=== PATIENT | female | born 1990 | race American Indian/Alaskan Native ===

== ENCOUNTER 2018-05-11 19:15 | Inpatient (IN) | payer MEDICAID ==
[2018-05-11] MEDS ORDERED: COLACE PO PRN (19:36)
[2018-05-11] MEDS ORDERED: TYLENOL PO PRN (19:36)
[2018-05-11] MEDS ORDERED: MAGNESIUM SULFATE 4GM/100ML 4 GM/100 ML BAG IV ONE (19:36)
--- NOTE | 2018-05-11 19:41 | History and Physical Report ---
History of Present Illness Date of examination: 05/11/18 Date of admission: 05/11/2018 Chief complaint: AEDF History of present illness: 28y/o @ 31+5 weeks with Di/Di twin gestation. The patient is being admitted by request from [facility] for findings of intermittent AEDF. She denies leakage of fluid or uterine contractions. Past History Past Medical History: no pertinent history Past Surgical History: section Social history: - Obstetrical History Expected Date of Delivery: 07/09/18 Actual Gestation: 31 Week(s) 5 Day(s) : 2 Para: 1 Hx # Term Pregnancies: 1 Number of Pregnancies: 0 Spontaneous Abortions: 0 Induced : 0 Number of Living Children: 1 Medications and Allergies Allergies Allergy/AdvReac Type Severity Reaction Status Date / Time shellfish derived Allergy Severe Anaphylaxis Verified 05/11/18 22:10 SEAFOOD Allergy Severe Anaphylaxis Uncoded 05/11/18 22:10 Home Medications Medication Instructions Recorded Confirmed Last Taken Type Vit,Calc76/Iron/Folic 1 tab PO DAILY 04/19/18 05/11/18 05/10/18 History [Pnv 29-1 Tablet] Review of Systems All systems: negative Genitourinary: no leakage of fluid, no contractions - Physical Exam Breasts: Positive: deferred Cardiovascular: Regular rate Lungs: Positive: Clear to auscultation Results Result Diagrams: 05/11/18 22:50 All other labs normal. Assessment and Plan - Patient Problems (1) Twin Current Visit: Yes Status: Acute Plan to address problem: admit for magnesium therapy and steroids (2) Intrauterine growth restriction (IUGR) affecting care of mother Current Visit: Yes Status: Acute
[2018-05-11] MEDS: LACTATED RINGERS 1,000 ML IV SCH (22:56)
[2018-05-11] MEDS: CELESTONE SOLUSPAN IM SCH (22:57)
[2018-05-11] MEDS: MAGNESIUM SULFATE 40GM/1000ML 40 GM/1,000 ML BAG IV SCH (23:21)
[2018-05-11] MEDS: PRENATAL VITAMIN PO SCH (23:24)
[2018-05-11 23:48] LABS: Basophils % (Auto) 0.2 % (0.0-1.8); Eosinophils # (Auto) 0.1 K/mm3 (0.0-0.4); Eosinophils % (Auto) 0.7 % (0.0-4.3); Hematocrit 37.1 % (30.3-42.9); Hemoglobin 12.3 gm/dl (10.1-14.3); Lymphocytes # (Auto) 2.1 K/mm3 (1.2-5.4); Lymphocytes % (Auto) 20.6 % (13.4-35.0); Mean Corpuscular HGB Conc 33 % (30-34); Mean Corpuscular Hemoglobin 29 pg (28-32); Mean Corpuscular Volume 88 fl (79-97); Monocytes # (Auto) 1.1 K/mm3 (0.0-0.8); Monocytes % (Auto) 10.6 % (0.0-7.3); Platelet Count 204 K/mm3 (140-440); Red Blood Count 4.24 M/mm3 (3.65-5.03); Red Cell Distribution Width 12.9 % (13.2-15.2)
--- NOTE | 2018-05-12 08:00 | Progress Note ---
Assessment and Plan - Patient Problems (1) Twin Current Visit: Yes Status: Acute Plan to address problem: continuous monitoring schedule BPP on Monday complete steroid series and magnesium (2) Intrauterine growth restriction (IUGR) affecting care of mother Current Visit: Yes Status: Acute Subjective - Subjective Date of service: 05/12/18 Interval history: 28y/o @ 31+5 weeks with Di/Di twin gestation. The patient is without any significant complaints. Will continue monitoring. Scheduled to receive 2nd dose of steroids tonight. Patient reports: no new complaints Objective - Vital Signs Vital Signs: Vital Signs - 12hr 05/11/18 05/11/18 05/11/18 22:19 22:21 22:55 Temperature 96.4 F L Pulse Rate 93 H 86 Respiratory 20 Rate Blood Pressure 106/59 105/54 O2 Sat by Pulse Oximetry 05/11/18 05/11/18 05/11/18 22:56 23:01 23:06 Temperature Pulse Rate 77 90 85 Respiratory Rate Blood Pressure 106/52 110/60 O2 Sat by Pulse 99 100 98 Oximetry 05/11/18 05/11/18 05/11/18 23:11 23:16 23:18 Temperature Pulse Rate 87 80 81 Respiratory Rate Blood Pressure 107/55 109/54 O2 Sat by Pulse 97 97 92 Oximetry 05/11/18 05/11/18 05/11/18 23:21 23:26 23:31 Temperature Pulse Rate 81 85 80 Respiratory Rate Blood Pressure 109/57 O2 Sat by Pulse 98 96 98 Oximetry 05/11/18 05/11/18 05/11/18 23:36 23:41 23:46 Temperature Pulse Rate 77 84 95 H Respiratory Rate Blood Pressure O2 Sat by Pulse 97 99 98 Oximetry 05/11/18 05/11/18 05/12/18 23:51 23:56 00:01 Temperature Pulse Rate 89 88 88 Respiratory Rate Blood Pressure O2 Sat by Pulse 98 97 97 Oximetry 05/12/18 05/12/18 05/12/18 00:02 00:06 00:11 Temperature Pulse Rate 51 L 85 86 Respiratory Rate Blood Pressure O2 Sat by Pulse 87 98 97 Oximetry 05/12/18 05/12/18 05/12/18 00:16 00:21 00:22 Temperature Pulse Rate 83 83 84 Respiratory Rate Blood Pressure 96/50 O2 Sat by Pulse 99 96 87 Oximetry 05/12/18 05/12/18 05/12/18 00:25 00:26 00:31 Temperature Pulse Rate 87 86 Respiratory 20 Rate Blood Pressure O2 Sat by Pulse 97 97 Oximetry 05/12/18 05/12/18 05/12/18 00:36 00:39 00:41 Temperature Pulse Rate 82 81 Respiratory Rate Blood Pressure O2 Sat by Pulse 97 82 L 98 Oximetry 05/12/18 05/12/18 05/12/18 00:46 00:51 00:56 Temperature Pulse Rate 81 85 86 Respiratory Rate Blood Pressure O2 Sat by Pulse 96 98 98 Oximetry 05/12/18 05/12/18 05/12/18 01:01 01:06 01:11 Temperature Pulse Rate 80 80 77 Respiratory Rate Blood Pressure O2 Sat by Pulse 96 96 95 Oximetry 05/12/18 05/12/18 05/12/18 01:16 01:21 01:22 Temperature Pulse Rate 81 80 79 Respiratory Rate Blood Pressure 106/58 O2 Sat by Pulse 98 98 Oximetry 05/12/18 05/12/18 05/12/18 01:26 01:31 01:36 Temperature Pulse Rate 79 84 84 Respiratory Rate Blood Pressure O2 Sat by Pulse 97 96 96 Oximetry 05/12/18 05/12/18 05/12/18 01:41 01:46 01:51 Temperature Pulse Rate 82 83 76 Respiratory Rate Blood Pressure O2 Sat by Pulse 97 98 98 Oximetry 05/12/18 05/12/18 05/12/18 01:56 02:01 02:06 Temperature 96.1 F L Pulse Rate 84 74 79 Respiratory 18 Rate Blood Pressure O2 Sat by Pulse 98 99 97 Oximetry 05/12/18 05/12/18 05/12/18 02:11 02:22 02:31 Temperature 98.0 F Pulse Rate 83 88 Respiratory 20 Rate Blood Pressure 146/84 O2 Sat by Pulse 96 Oximetry 05/12/18 05/12/18 05/12/18 02:40 02:42 02:45 Temperature Pulse Rate 83 85 80 Respiratory Rate Blood Pressure 122/64 O2 Sat by Pulse 99 99 Oximetry 05/12/18 05/12/18 05/12/18 02:50 02:55 03:00 Temperature Pulse Rate 83 85 82 Respiratory Rate Blood Pressure O2 Sat by Pulse 98 98 100 Oximetry 05/12/18 05/12/18 05/12/18 03:05 03:10 03:15 Temperature Pulse Rate 77 80 80 Respiratory Rate Blood Pressure O2 Sat by Pulse 99 98 99 Oximetry 05/12/18 05/12/18 05/12/18 03:20 03:22 03:25 Temperature Pulse Rate 82 82 77 Respiratory Rate Blood Pressure 112/59 O2 Sat by Pulse 98 99 Oximetry 05/12/18 05/12/18 05/12/18 03:30 03:35 03:40 Temperature Pulse Rate 63 79 73 Respiratory Rate Blood Pressure O2 Sat by Pulse 98 99 99 Oximetry 05/12/18 05/12/18 05/12/18 03:45 03:50 03:55 Temperature Pulse Rate 72 67 72 Respiratory Rate Blood Pressure O2 Sat by Pulse 99 98 98 Oximetry 05/12/18 05/12/18 05/12/18 04:00 04:05 04:10 Temperature Pulse Rate 66 69 76 Respiratory Rate Blood Pressure O2 Sat by Pulse 98 98 99 Oximetry 05/12/18 05/12/18 05/12/18 04:15 04:20 04:22 Temperature Pulse Rate 72 64 64 Respiratory 18 Rate Blood Pressure 120/54 O2 Sat by Pulse 99 98 Oximetry 05/12/18 05/12/18 05/12/18 04:25 04:30 04:35 Temperature Pulse Rate 76 71 72 Respiratory Rate Blood Pressure O2 Sat by Pulse 98 97 98 Oximetry 05/12/18 05/12/18 05/12/18 04:40 04:45 04:50 Temperature Pulse Rate 73 70 64 Respiratory Rate Blood Pressure O2 Sat by Pulse 97 97 96 Oximetry 05/12/18 05/12/18 05/12/18 04:55 05:00 05:05 Temperature Pulse Rate 72 62 67 Respiratory Rate Blood Pressure O2 Sat by Pulse 98 98 99 Oximetry 05/12/18 05/12/18 05/12/18 05:10 05:15 05:20 Temperature Pulse Rate 74 71 65 Respiratory Rate Blood Pressure O2 Sat by Pulse 98 99 99 Oximetry 05/12/18 05/12/18 05/12/18 05:23 05:24 05:25 Temperature Pulse Rate 71 74 71 Respiratory Rate Blood Pressure 126/63 O2 Sat by Pulse 93 97 Oximetry 05/12/18 05/12/18 05/12/18 05:30 05:35 05:40 Temperature Pulse Rate 75 66 71 Respiratory 18 Rate Blood Pressure O2 Sat by Pulse 98 99 98 Oximetry 05/12/18 05/12/18 05/12/18 05:45 05:50 05:55 Temperature Pulse Rate 69 68 70 Respiratory Rate Blood Pressure O2 Sat by Pulse 98 97 98 Oximetry 05/12/18 05/12/18 05/12/18 05:57 06:00 06:05 Temperature Pulse Rate 76 81 78 Respiratory Rate Blood Pressure O2 Sat by Pulse 93 97 97 Oximetry 05/12/18 05/12/18 05/12/18 06:10 06:15 06:20 Temperature Pulse Rate 79 82 78 Respiratory Rate Blood Pressure O2 Sat by Pulse 97 96 97 Oximetry 05/12/18 05/12/18 05/12/18 06:22 06:25 06:30 Temperature Pulse Rate 82 75 68 Respiratory Rate Blood Pressure 121/64 O2 Sat by Pulse 99 99 Oximetry 05/12/18 05/12/18 05/12/18 06:35 06:40 06:45 Temperature Pulse Rate 80 77 74 Respiratory Rate Blood Pressure O2 Sat by Pulse 98 98 99 Oximetry 05/12/18 05/12/18 05/12/18 06:50 06:53 06:55 Temperature Pulse Rate 90 84 Respiratory 22 Rate Blood Pressure O2 Sat by Pulse 99 99 Oximetry 05/12/18 05/12/18 05/12/18 07:00 07:05 07:10 Temperature Pulse Rate 83 77 75 Respiratory Rate Blood Pressure O2 Sat by Pulse 97 99 98 Oximetry 05/12/18 05/12/18 05/12/18 07:15 07:20 07:22 Temperature Pulse Rate 80 76 79 Respiratory Rate Blood Pressure 111/67 O2 Sat by Pulse 98 98 94 Oximetry 05/12/18 05/12/18 05/12/18 07:25 07:30 07:35 Temperature Pulse Rate 82 79 75 Respiratory Rate Blood Pressure O2 Sat by Pulse 98 100 100 Oximetry 05/12/18 05/12/18 05/12/18 07:40 07:45 07:50 Temperature Pulse Rate 80 83 84 Respiratory Rate Blood Pressure O2 Sat by Pulse 98 99 98 Oximetry 05/12/18 07:55 Temperature Pulse Rate 84 Respiratory Rate Blood Pressure O2 Sat by Pulse 98 Oximetry - Labs Labs: Abnormal Labs 05/11/18 22:50 RDW 12.9 L [place] % (Auto) 10.6 H [place] # 1.1 H Laboratory Results - last 24 hr 05/11/18 05/11/18 22:50 22:50 WBC 10.0 RBC 4.24 Hgb 12.3 Hct 37.1 MCV 88 MCH 29 MCHC 33 RDW 12.9 L Plt Count 204 Lymph % (Auto) 20.6 [place] % (Auto) 10.6 H Eos % (Auto) 0.7 Baso % (Auto) 0.2 Lymph # 2.1 [place] # 1.1 H Eos # 0.1 Baso # 0.0 Seg Neutrophils % 67.9 Seg Neutrophils # 6.8 Blood Type O NEGATIVE Antibody Screen Negative Screen Negative
[2018-05-12] MEDS: LACTATED RINGERS 1,000 ML IV SCH (11:56)
[2018-05-12] MEDS: MAGNESIUM SULFATE 40GM/1000ML 40 GM/1,000 ML BAG IV SCH (17:41)
[2018-05-12] MEDS ORDERED: CELESTONE SOLUSPAN IM SCH (22:30)
[2018-05-12] MEDS: CELESTONE SOLUSPAN IM SCH (22:42)
[2018-05-13] MEDS: PRENATAL VITAMIN PO SCH (11:30)
--- NOTE | 2018-05-13 16:42 | Progress Note ---
Assessment and Plan - Patient Problems (1) Twin Current Visit: Yes Status: Acute Plan to address problem: patient clinically stable reassuring monitoring (2) Intrauterine growth restriction (IUGR) affecting care of mother Current Visit: Yes Status: Acute Subjective - Subjective Date of service: 05/13/18 Interval history: 28y/o @ 31+6 weeks with Di/Di twin gestation. The patient is without any significant complaints. Scheduled for BPP tomorrow. Patient reports: no new complaints Objective - Vital Signs Vital Signs: Vital Signs - 12hr 05/13/18 05/13/18 05/13/18 04:46 04:51 04:56 Pulse Rate 80 74 85 Blood Pressure O2 Sat by Pulse 98 98 98 Oximetry 05/13/18 05/13/18 05/13/18 05:01 05:06 05:11 Pulse Rate 79 87 84 Blood Pressure O2 Sat by Pulse 98 98 97 Oximetry 05/13/18 05/13/18 05/13/18 05:16 05:21 05:26 Pulse Rate 90 86 87 Blood Pressure O2 Sat by Pulse 97 97 97 Oximetry 05/13/18 05/13/18 05/13/18 05:31 05:36 05:41 Pulse Rate 82 85 88 Blood Pressure O2 Sat by Pulse 97 98 98 Oximetry 05/13/18 05/13/18 05/13/18 05:46 05:51 11:32 Pulse Rate 80 90 83 Blood Pressure 119/59 O2 Sat by Pulse 96 98 Oximetry - Labs Labs: Abnormal Labs 05/11/18 22:50 RDW 12.9 L [place] % (Auto) 10.6 H [place] # 1.1 H Laboratory Results - last 24 hr 05/11/18 22:50 Blood Type O NEGATIVE Antibody Screen Negative Screen Negative
--- NOTE | 2018-05-14 10:36 | Ultrasound Report ---
ULTRASOUND BIOPHYSICAL PROFILE: History: Intrauterine growth restriction, well being Technique: Transabdominal ultrasound with Doppler interrogation. Baby A 0 - breathing movements 2 - movements 2 - posture and tone 2 - Qualitative amniotic fluid volume 6 - TOTAL SCORE OF POSSIBLE 8 Heart Rate (bpm) 154 ULTRASOUND BIOPHYSICAL PROFILE: History: Intrauterine growth restriction, well being Technique: Transabdominal ultrasound with Doppler interrogation. Baby B 2 - breathing movements 2 - movements 2 - posture and tone 2 - Qualitative amniotic fluid volume 8 - TOTAL SCORE OF POSSIBLE 8 Heart Rate (bpm) 154
--- NOTE | 2018-05-14 10:38 | Ultrasound Report ---
ULTRASOUND OB VELOCIMETRY UMBILICAL ARTERY HISTORY: well being, twin gestation. TECHNIQUE: Transabdominal ultrasound. Spectral Doppler interrogation was performed on 3 segments of the umbilical cord. FINDINGS: Baby A heart rate measures 152 beats per minute. The spectral waveforms are normal and persistent. No evidence for loss or reversal of end-diastolic flow. The resistive index average measures 0.72. The systolic/diastolic ratio average measures 3.2. IMPRESSION: Mildly elevated resistive indices.
--- NOTE | 2018-05-14 10:40 | Ultrasound Report ---
ULTRASOUND OB VELOCIMETRY UMBILICAL ARTERY HISTORY: well being, twin gestation. TECHNIQUE: Transabdominal ultrasound. Spectral Doppler interrogation was performed on 3 segments of the umbilical cord. FINDINGS: Baby B heart rate measures 152 beats per minute. The spectral waveforms are normal and persistent. No evidence for loss or reversal of end-diastolic flow. The resistive index average measures 0.72. The systolic/diastolic ratio average measures 3.4. IMPRESSION: Mildly elevated resistive indices.
[2018-05-14] MEDS: PRENATAL VITAMIN PO SCH (10:53)
[2018-05-14 12:16] VITALS: BP 100/55
== END 2018-05-14 12:21 | disposition home or self-care (01) | DRG 782 ==
LOC: TRG 19:15 → LD 23:59
PROVIDERS: ADMIT Obstetrics & Gynecology; ATTEND Obstetrics & Gynecology
PROC: 3E0334Z Introduction of Serum, Toxoid and Vaccine into Peripheral Vein, Percutaneous Approach (ICD-10-PCS; principal; 2018-05-12)
DX: O30.043 Twin pregnancy, dichorionic/diamniotic, third trimester (principal); O36.5930 Maternal care for other known or suspected poor fetal growth, third trimester, not applicable or unspecified; Z3A.31 31 weeks gestation of pregnancy; Z23 Encounter for immunization
CPT/HCPCS: 36415; 76819; 76820; 85025; 85461; 86850; 86900; 86901; G0378; J0702; J2790; J3475; J7120

== ENCOUNTER 2018-06-05 20:47 | Inpatient (IN) | payer MEDICAID ==
[2018-06-05] MEDS ORDERED: AMBIEN PO PRN (22:00)
[2018-06-05] MEDS: LACTATED RINGERS 1,000 ML IV SCH (22:00)
[2018-06-05] MEDS: DECADRON IV SCH (22:35)
[2018-06-05 23:07] LABS: Hematocrit 35.2 % (30.3-42.9); Hemoglobin 11.9 gm/dl (10.1-14.3); Mean Corpuscular HGB Conc 34 % (30-34); Mean Corpuscular Volume 86 fl (79-97); Platelet Count 197 K/mm3 (140-440); Red Cell Distribution Width 12.9 % (13.2-15.2)
[2018-06-06] MEDS ORDERED: DECADRON IV SCH
[2018-06-06] MEDS: LACTATED RINGERS 1,000 ML IV SCH ×2 (06:59→19:48)
--- NOTE | 2018-06-06 07:28 | History and Physical Report ---
History of Present Illness Date of examination: 06/06/18 Date of admission: 06/05/18 20:47 Chief complaint: IUGR and Abnormal dopplers History of present illness: Patient is a 28 year old with a twin IUP at 35.2 weeks. Patient was seen at [facility] on Monday where abnormal dopplers were found on exam for Baby B as well as IUGR for both twins. Per [facility] she was to be admitted, given steroids and delivered post steroid. Patient had been scheduled for repeat on 06/20/18. Past History Past Medical History: no pertinent history Past Surgical History: section Family/Genetic History: none Social history: single - Obstetrical History Expected Date of Delivery: 07/09/18 Actual Gestation: 35 Week(s) 3 Day(s) : 2 Para: 1 Medications and Allergies Allergies Allergy/AdvReac Type Severity Reaction Status Date / Time shellfish derived Allergy Severe Anaphylaxis Verified 05/11/18 22:10 SEAFOOD Allergy Severe Anaphylaxis Uncoded 05/11/18 22:10 Home Medications Medication Instructions Recorded Confirmed Last Taken Type Vit,Calc76/Iron/Folic 1 tab PO DAILY 04/19/18 05/11/18 05/10/18 History [Pnv 29-1 Tablet] Active Meds: Active Medications Acetaminophen (Tylenol) 650 mg PO Q4H PRN PRN Reason: Pain MILD(1-3)/Fever >100.5/MOSS Dexamethasone (Decadron) 6 mg IV Q12HR ERIN Stop: 06/07/18 10:01 Last Admin: 06/05/18 22:35 Dose: 6 mg Documented by: Docusate Sodium (Colace) 100 mg PO Q12H PRN PRN Reason: Constipation Lactated Ringer's (Lactated Ringers) 1,000 mls @ 125 mls/hr IV DIRECT ERIN Last Admin: 06/06/18 06:59 Dose: 125 mls/hr Documented by: Multivitamins/Iron/Calcium ( Vitamin) 1 each PO QDAY ERIN Ondansetron HCl (Zofran) 4 mg IV Q6H PRN PRN Reason: Nausea And Vomiting Zolpidem Tartrate (Ambien) 10 mg PO QHS PRN PRN Reason: Insomnia Review of Systems All systems: negative Constitutional: weight gain Eyes: deferred - Vital Signs Vital signs: Vital Signs Temp Pulse Resp BP 97.0 F L 75 18 139/73 06/05/18 22:00 06/05/18 22:00 06/05/18 22:00 06/05/18 22:00 Temp Pulse Resp BP Pulse Ox 97.8 F 60 20 114/56 06/06/18 05:22 06/06/18 07:10 06/06/18 05:22 06/06/18 07:10 - Physical Exam Breasts: Positive: deferred Cardiovascular: Regular rate, Normal S1, Normal S2 Lungs: Positive: Clear to auscultation, Normal air movement Abdomen: Positive: normal appearance, soft, normal bowel sounds Genitourinary (Female): Positive: normal external genitalia, normal perenium Vulva: both: normal Vagina: Positive: normal moisture Uterus: Positive: normal size, normal contour Extremities: Positive: normal Deep Tendon Reflex Grade: Normal +2 - Obstetrical FHR: auscultation normal Cervical Dilatation: 0 Results Result Diagrams: 06/06/18 09:39 Abnormal lab results 06/05/18 Range/Units 22:10 RDW 12.9 L (13.2-15.2) % All other labs normal. Assessment and Plan Twin IUP at 35 weeks here for steroids and delivery. Admit for same. Patient to be NPO after 10pm.
[2018-06-06] MEDS ORDERED: TYLENOL PO PRN (09:00)
[2018-06-06] MEDS ORDERED: MYLICON PO PRN (09:00)
[2018-06-06] MEDS ORDERED: COLACE PO PRN (09:00)
[2018-06-06] MEDS ORDERED: ZOFRAN IV PRN (09:00)
[2018-06-06 10:05] LABS: Basophils % (Auto) 0.1 % (0.0-1.8); Eosinophils % (Auto) 0.1 % (0.0-4.3); Hematocrit 35.6 % (30.3-42.9); Hemoglobin 12.1 gm/dl (10.1-14.3); Lymphocytes # (Auto) 0.9 K/mm3 (1.2-5.4); Lymphocytes % (Auto) 11.8 % (13.4-35.0); Mean Corpuscular HGB Conc 34 % (30-34); Mean Corpuscular Volume 86 fl (79-97); Monocytes # (Auto) 0.4 K/mm3 (0.0-0.8); Platelet Count 196 K/mm3 (140-440); Red Blood Count 4.15 M/mm3 (3.65-5.03)
[2018-06-06] MEDS: PRENATAL VITAMIN PO SCH (12:02)
[2018-06-06] MEDS: DECADRON IV SCH ×2 (12:02→22:55)
[2018-06-07] MEDS: PRENATAL VITAMIN PO SCH (11:00)
[2018-06-07] MEDS: DECADRON IV SCH (11:00)
--- NOTE | 2018-06-07 17:49 | Progress Note ---
Assessment and Plan HD 2 for steroid redose in preparation for rcs. Doing well. Plan for in am. Subjective - Subjective Date of service: 06/07/18 Interval history: Patient is a 28 year old with a twin IUP at 35.2 weeks. Patient was seen at [facility] on Monday where abnormal dopplers were found on exam for Baby B as well as IUGR for both twins. Per [facility] she was to be admitted, given steroids and delivered post steroid. Patient had been scheduled for repeat on 06/20/18. Patient reports: movement normal Objective - Vital Signs Vital Signs: Vital Signs - 12hr 06/07/18 06/07/18 06/07/18 06:05 06:13 07:22 Temperature Pulse Rate 63 63 63 Respiratory 18 Rate Blood Pressure 99/55 131/65 Blood Pressure 99/55 [Right] 06/07/18 06/07/18 06/07/18 11:51 12:00 15:02 Temperature 98.2 F Pulse Rate 68 68 Respiratory 16 Rate Blood Pressure 122/60 118/65 Blood Pressure [Right] - Exam Breasts: deferred Cardiovascular: Regular rate, Normal S1, Normal S2 Lungs: Clear to auscultation, Normal air movement Abdomen: Present: normal appearance, soft, normal bowel sounds Uterus: Present: normal - Labs Labs: Abnormal Labs 06/05/18 06/06/18 22:10 09:39 RDW 12.9 L 13.0 L Lymph % (Auto) 11.8 L Lymph # 0.9 L Seg Neutrophils % 83.0 H
[2018-06-08] MEDS ORDERED: BICITRA PO NR (05:23)
[2018-06-08] MEDS ORDERED: PEPCID IV NR (05:23)
[2018-06-08] MEDS ORDERED: REGLAN IV NR (05:23)
[2018-06-08] MEDS ORDERED: LACTATED RINGERS 1,000 ML IV SCH (06:00)
[2018-06-08] MEDS ORDERED: ANCEF/STERILE WATER 2 GM/20 ML 2 GM/20 ML SYRINGE IV NR (06:00)
[2018-06-08] MEDS ORDERED: PITOCin/NS 20 UNIT/1000ML DRIP 20 UNITS/1,000 ML BAG IV SCH ×2 (06:00→11:01)
[2018-06-08] MEDS ORDERED: PITOCin/NS 20 UNIT/1000ML DRIP 20,000 MILLIUNITS/1,000 ML BAG IV ONE (06:52)
[2018-06-08] MEDS ORDERED: ADRENALIN ONE (07:25)
--- NOTE | 2018-06-08 07:29 | Anesthesia Consultation ---
Anesthesia Consult and Med Hx Date of service: 06/08/18 - Airway Anesthetic Teeth Evaluation: Good ROM Head & Neck: Adequate Mental/Hyoid Distance: Inadequate Mallampati Class: Class III Intubation Access Assessment: Possibly Difficult - Pulmonary Exam CTA: Yes - Cardiac Exam Cardiac Exam: RRR - Pre-Operative Health Status ASA Pre-Surgery Classification: ASA3 Proposed Anesthetic Plan: Spinal - Pulmonary Hx Smoking: No Hx Asthma: No COPD: No Hx Pneumonia: No - Cardiovascular System Hx Hypertension: No - Central Nervous System Hx Seizures: No Hx Psychiatric Problems: No - Endocrine Hx Renal Disease: No Hx End Stage Renal Disease: No Hx Hypothyroidism: No Hx Hyperthyroidism: No - Hematic Hx Anemia: No Hx Sickle Cell Disease: No - Other Systems Hx Alcohol Use: No
[2018-06-08] MEDS ORDERED: WATER FOR IRRIG STERILE IR ONE (07:48)
[2018-06-08] MEDS ORDERED: NACL 0.9% IR ONE (07:48)
[2018-06-08] MEDS ORDERED: DECADRON ONE (08:30)
[2018-06-08] MEDS ORDERED: TORADOL ONE (08:31)
[2018-06-08] MEDS ORDERED: NEO SYNEPHRINE ONE (08:31)
[2018-06-08] MEDS ORDERED: ZOFRAN ONE (08:31)
--- NOTE | 2018-06-08 08:59 | Operative Report ---
Operative Report Operative Report: The operative report for patient Kia Hernandez Date of service 06/08/2018 Preoperative diagnosis: Twin Intrauterine at 35 3/7 weeks 2. Previous x 1 3. Bilateral IUGR Postoperative diagnosis: Same Procedure: Repeat low transverse section Surgeon: Dr. Christianne Jiménez EBL: 600 Urine output: 100 mL IV fluids: 1000 mL Findings: Normal pelvic anatomy. Twin A was a viable female weighing 3 lbs. 14 oz, with Apgars 8 and 9. Twin B was a viable male weighing 4 lbs. 4 oz, with Apgars 8 and 9. Specimens: None Complications: None Procedure: The patient was admitted to the OR with IV running and in place. She was properly identified as herself. She was given spinal anesthesia in the OR without difficulty. She was placed in the dorsal supine position with a leftward tilt. A Black catheter was inserted. She was then prepped and draped in the normal sterile fashion. An Allis test was used to confirm adequate anesthesia. Once confirmed, the incision was made with the scalpel and carried to the underlying fascia using the scalpel and the Bovie. The fascia was incised in the midline and incision was extended bilaterally using the curved Whittaker scissors. The fascia was then dissected from the underlying rectus muscles in a series of sharp and blunt dissection using the Whittaker scissors. Muscles were in the in the midline sharply using Metzenbaum scissors and the peritoneum was entered into bluntly using the surgeon's fingers. An Rogelio retractor was placed into the incision to provide visualization. A bladder blade was then placed into the incision to protect the bladder. Following this the bladder flap was created. Hysterotomy incision was then made in the scalpel. Upon uterine entry, the amniotic sac was ruptured for clear fluid. Baby A was then delivered in the vertex position. Her mouth and nose were suctioned on the field. The cord was clamped and cut and he was handed to the waiting NICU personnel. The second sac was ruptured and baby B was also delivered in the transverse presentation converted to vertex. He also was handed to the waiting NICU personnel The placenta was delivered manually and taken off the field. The uterus was then exteriorized and cleared of all clots and debris. The hysterotomy incision was then closed in a running locked fashion using 0 Vicryl. The abdomen was then copiously irrigated with warm normal saline. Following this the uterus was replaced into the abdominal cavity. At this point the muscles were reapproximated in the midline using individual sutures of 0 Vicryl. Following this the fascia was closed in a running fashion using 0 Vicryl. Tissue was then copiously irrigated. A retention suture was placed in the subcuticular fat. Skin was closed with haydee The sponge lap needle and instrument counts were correct 2. The patient tolerated the procedure well. She was taken to recovery in stable condition.
[2018-06-08] MEDS ORDERED: PHENERGAN PR PRN ×2 (09:09→11:01)
[2018-06-08] MEDS ORDERED: NARCAN 0.4 MG/1 ML IV PRN ×2 (09:09→11:01)
[2018-06-08] MEDS ORDERED: ZOFRAN IV PRN ×2 (09:09→11:01)
[2018-06-08] MEDS ORDERED: PHENERGAN PO PRN (09:09)
[2018-06-08] MEDS ORDERED: fentaNYL-BUPIV 2 MCG/ML-0.125% 200 MCG/100 ML BAG EPIDURAL SCH (10:00)
[2018-06-08] MEDS ORDERED: SODIUM CHLORIDE FLUSH SYRINGE 10 ML IV NR ×2 (10:00→11:01)
[2018-06-08] MEDS ORDERED: MILK OF MAGNESIA PO PRN (11:01)
[2018-06-08] MEDS ORDERED: TYLENOL PO PRN (11:01)
[2018-06-08] MEDS ORDERED: TORADOL IV PRN (11:01)
[2018-06-08] MEDS ORDERED: MORPHINE IV PRN (11:01)
[2018-06-08] MEDS ORDERED: D5LR 1,000 ML IV SCH (11:01)
[2018-06-08] MEDS ORDERED: TUCKS PAD TP PRN (11:01)
[2018-06-08] MEDS ORDERED: LANSINOH TP PRN (11:01)
[2018-06-08] MEDS: PERCOCET 5/325 PO PRN ×2 (14:21→23:46)
[2018-06-08] MEDS: PRENATAL VITAMIN PO SCH (14:21)
[2018-06-08 21:18] LABS: Hematocrit 32.2 % (30.3-42.9); Hemoglobin 10.9 gm/dl (10.1-14.3)
[2018-06-09] MEDS: IBUPROFEN PO PRN ×3 (05:25→23:43)
[2018-06-09] MEDS: PERCOCET 5/325 PO PRN ×2 (11:32→17:35)
[2018-06-09] MEDS: PRENATAL VITAMIN PO SCH (11:32)
--- NOTE | 2018-06-09 17:14 | Progress Note ---
Assessment and Plan POD 1 s/p RLTCS for twins with IUGR. Doing well. Patient without complaint. Encourage ambulation. Continue routine care. Subjective - Subjective Date of service: 06/09/18 Interval history: Patient is a 28 year old with a twin IUP at 35.2 weeks. Patient was seen at [facility] on Monday where abnormal dopplers were found on exam for Baby B as well as IUGR for both twins. Per [facility] she was to be admitted, given steroids and delivered post steroid. Patient had been scheduled for repeat on 06/20/18. Patient reports: appetite normal, voiding normally, pain well controlled, ambulating normally : in NICU Objective - Vital Signs Latest vital signs: Vital Signs Temp Pulse Resp BP BP Pulse Ox 06/09/18 15:20 98.5 F 94 H 22 115/63 97 06/09/18 08:30 97.1 F L 61 20 113/58 06/09/18 05:25 18 06/09/18 00:00 98.2 F 63 20 132/66 06/08/18 23:46 18 Intake and Output 06/09/18 06/09/18 06/09/18 06:59 14:59 22:59 Intake Total 340 423 4972 Output Total 300 Balance -60 360 1000 Intake: Oral 205 504 6863 Output: Urine 300 Void 300 Other: Total, Intake Amount 671 374 7300 Total, Output Amount 300 Voiding Method Toilet Toilet # Voids 1 Void 1 1 # Bowel Movements 1 - Exam Cardiovascular: Present: Regular rate, Normal S1, Normal S2 Lungs: Present: Clear to auscultation, Normal air movement Abdomen: Present: normal appearance, soft, normal bowel sounds Vulva: both: normal Uterus: Present: normal, firm, fundal height below umbilicus Extremities: Present: normal Deep Tendon Reflex Grade: Normal +2
[2018-06-10] MEDS: IBUPROFEN PO PRN ×3 (05:10→17:37)
[2018-06-10] MEDS: PRENATAL VITAMIN PO SCH (10:32)
[2018-06-10] MEDS: PERCOCET 5/325 PO PRN ×2 (10:37→17:37)
--- NOTE | 2018-06-10 13:54 | Procedure Note ---
OB Delivery Note - Delivery Date of Delivery: 06/08/18 Surgeon: PHILLIP TRAN Estimated blood loss: 500cc - Section Preop diagnosis: repeat , other (twins, iugr) Postop diagnosis: same section procedure: repeat low transverse Disposition: PACU Complications: none Narrative: see op - A at 1 minute: 7 at 5 minutes: 9 Infant Gender: Female (3 pounds 14 ounces) B at 1 minute: 8 at 5 minutes: 9 Infant Gender: Male (4 pounds 4 ounces)
--- NOTE | 2018-06-10 14:11 | Progress Note ---
Assessment and Plan POD 2 s/p rltcs. Doing well. Patient's pain is well controlled. Plan for discharge on tomorrow. Subjective - Subjective Date of service: 06/10/18 Interval history: Patient is a 28 year old with a twin IUP at 35.2 weeks. Patient was seen at [facility] on Monday where abnormal dopplers were found on exam for Baby B as well as IUGR for both twins. Per [facility] she was to be admitted, given steroids and delivered post steroid. Patient had been scheduled for repeat on 06/20/18. Patient reports: appetite normal, voiding normally, pain well controlled, ambulating normally [place]: in NICU Objective - Vital Signs Latest vital signs: Vital Signs Temp Pulse Resp BP BP Pulse Ox 06/10/18 08:30 98.4 F 64 18 130/64 06/10/18 05:10 18 06/10/18 00:43 18 06/10/18 00:00 98.8 F 80 20 100/52 06/09/18 23:43 18 06/09/18 15:20 98.5 F 94 H 22 115/63 97 Intake and Output 06/09/18 06/10/18 06/10/18 22:59 06:59 14:59 Intake Total 1800 480 300 Balance 1800 480 300 Intake: Oral 1800 480 Intake, Free Water 300 Other: Total, Intake Amount 800 240 Voiding Method Toilet # Voids 1 Void 1 1 # Bowel Movements 1 - Exam Breasts: Present: deferred Cardiovascular: Present: Regular rate, Normal S1, Normal S2 Lungs: Present: Clear to auscultation, Normal air movement Abdomen: Present: normal appearance, soft, normal bowel sounds Vulva: both: normal Uterus: Present: normal, firm Extremities: Present: normal Deep Tendon Reflex Grade: Normal +2 Incision: Present: normal, dry, intact
--- NOTE | 2018-06-10 14:16 | Discharge Summary ---
Providers - Providers Date of Admission: 06/05/18 20:47 Date of discharge: 06/11/18 Attending physician: PHILLIP TRAN Primary care physician: PHILLIP TRAN Hospitalization Reason for admission: section Procedure: repeat low transverse Episiotomy: none Incision: normal, dry, intact Discharge diagnosis: IUP at term delivered [place] baby: twins Hospital course: unremarkable Condition at discharge: Good Disposition: [id number] TO HOME OR SELFCARE Plan - Discharge Medications Prescriptions: Docusate Sodium [Colace] 100 mg PO BID PRN #60 capsule PRN Reason: Constipation Ibuprofen [Motrin] 800 mg PO Q8HR PRN #40 tablet PRN Reason: Pain, Mild (1-3) Oxycodone HCl/Acetaminophen [Percocet 7.5/325 mg] 1 each PO Q6HR PRN #40 tablet PRN Reason: Pain - Provider Discharge Summary Activity: routine, no sex for 6 weeks, no heavy lifting 4 weeks, no strenuous exercise Diet: routine Instructions: routine Additional instructions: [] Smoking cessation referral if applicable(refer to patient education folder f or contact #) [] Refer to [facility] Booklet Call your doctor immediately for: * Fever > 100.5 * Heavy vaginal bleeding ( >1 pad per hour) * Severe persistent headache * Shortness of breath * Reddened, hot, painful area to leg or breast * Drainage or odor from incision. * Keep incision clean and dry at all times and follow doctor's instructions regarding bathing/showering - Follow up plan Follow up: PHILLIP TRAN MD [Primary Care Provider] - 7 Days
[2018-06-11] MEDS: IBUPROFEN PO PRN ×2 (00:04→08:07)
[2018-06-11] MEDS: PERCOCET 5/325 PO PRN ×2 (00:04→08:07)
[2018-06-11 09:00] VITALS: BP 130/73
== END 2018-06-11 11:30 | disposition home or self-care (01) | DRG 765 ==
LOC: LD 20:47 → APU 06-08 07:34 → OB 06-08 10:58
PROVIDERS: ADMIT Obstetrics & Gynecology; ATTEND Obstetrics & Gynecology
PROC: 10D00Z1 Extraction of Products of Conception, Low, Open Approach (ICD-10-PCS; principal; 2018-06-08)
DX: O34.211 Maternal care for low transverse scar from previous cesarean delivery (principal); O36.5932 Maternal care for other known or suspected poor fetal growth, third trimester, fetus 2; O30.003 Twin pregnancy, unspecified number of placenta and unspecified number of amniotic sacs, third trimester; O36.5931 Maternal care for other known or suspected poor fetal growth, third trimester, fetus 1; Z3A.35 35 weeks gestation of pregnancy; Z37.2 Twins, both liveborn; Z91.013 Allergy to seafood; Z79.899 Other long term (current) drug therapy
CPT/HCPCS: 36415; 85014; 85018; 85025; 85027; 86592; 86850; 86870; 86900; 86901; 88307; G0378; J0171; J1100; J1885; J2270; J2370; J2405; J2590; J2765; J7120; J7121